=== PATIENT | male | born 2000 | race Caucasian/White ===

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

== ENCOUNTER 2019-04-20 11:51 | Outpatient (CLI) | payer BC, SELFPAY ==
[2019-04-20 12:47] LABS: HCT 42.7 % (40.0-50.0); HGB 13.9 g/dL (13.5-17.5); Mean Corp. HGB Concentration 32.6 g/dL (32.0-36.0); Mean Corpuscular Hemoglobin 26.7 pg (27.0-33.0); Mean Corpuscular Volume 82.1 fL (80-95); Mean Platelet Volume 9.4 fL (8.0-11.0); Platelet Count 260 x1000/uL (130-400); RBC Distribution Width 13.5 % (11.8-14.1); White Blood Cell Count 7.64 k/cumm (4.4-10.8)
[2019-04-20 13:49] LABS: ALT 66 U/L (16-63); AST 31 U/L (15-37); Albumin 3.8 g/dL (3.4-5.0); Alkaline Phosphatase 85 U/L (46-116); Anion Gap 13.6 mmol/L (3-11); BUN 17 mg/dL (7-18); Bilirubin, Total 0.6 mg/dL (0.2-1.0); CO2 25.4 mmol/L (21.0-32.0); CREATININE 1.02 mg/dL (0.70-1.30); Calcium 8.7 mg/dL (8.5-10.1); Chloride 103 mmol/L (98-107); Glucose 128 mg/dL (74-106); Potassium 4.1 mmol/L (3.5-5.1); Sodium 142 mmol/L (136-145); TSH (W/Ref FT4) 1.91 uIU/mL (0.36-3.74); Total Protein 7.5 g/dL (6.4-8.2)
== END 2019-04-20 12:11 ==
PROVIDERS: PCP Family Medicine; Visit Provider Family Medicine
DX: F32.9 Major depressive disorder, single episode, unspecified (principal)
CPT/HCPCS: 36415; 80053; 85027; 84443

== ENCOUNTER 2020-09-28 15:10 | Emergency (ER) | payer OTHER, SELFPAY ==
[2020-09-28 15:14] VITALS: BP 127/52; PULSE 58; RESP 15; TEMP 36.4; O2SAT 98
--- NOTE | 2020-09-28 15:15 | DI.RAD_ITS ---
Exam(s) XR SHOULDER RT COMPLETE 2+V EXAM: XR SHOULDER RT COMPLETE 2+V CLINICAL HISTORY: s/p dislocation self reduction,r/o fx/dislocation TECHNIQUE: COMPARISON: No exams were available for comparison FINDINGS: Four views were obtained. There is no evidence of fracture or dislocation at this time. IMPRESSION: RADIATION DOSE DELIVERED: Total DLP
--- NOTE | 2020-09-28 15:24 | W.ED.GENAD ---
Discharge Plan Disposition Patient Disposition: HOME Condition: Stable Discharge Details Clinical Impression: Pain in right shoulder, History of dislocation of shoulder Primary Care Provider: Benitez Nation ED Provider: Terra Sutton Home Meds and New Rx's Prescriptions: Continued albuterol sulfate [Ventolin HFA] 90 mcg/actuation HFA aerosol inhaler 2 puff IH Q4H PRN (Reason: shortness of breath or wheezing) Qty: 8.5 RF: 2 escitalopram oxalate 10 mg tablet 10 mg PO DAILY Qty: 30 RF: 11 Discharge Instructions Instructions: Shoulder Dislocation (ED) Additional Instructions: Wear the sling over the next few days and then as much as possible for the next week. Rest, ice, and elevate the affected area as much as possible. Alternate tylenol and motrin as needed and directed for pain. If you are continuing to have pain or any other concerns, follow-up with orthopedics for further evaluation. Return immediately to the emergency department if you develop any worsening or new concerning symptoms. Stand Alone Forms: Work Release Referrals: Ferddy Miles MD [ [facility] STAFF PHYSICIAN] - Discharge Data Discharge Date/Time-TO BE ENTERED AT DEPARTURE: 09/28/20 16:45 Discharge Physician: Terra Sutton Medical Decision Making 19-year-old male with a previous history of right shoulder dislocation presents for right shoulder pain after he reports he dislocated his shoulder and self reduced just prior to arrival. Right shoulder appears normal to inspection with full range of motion with minimal pain. He is neurovascularly intact. There is no deformity. Patient was placed in a sling and given ibuprofen. He was referred for an x-ray which was unremarkable. He was advised on the importance of RICE, alternating Tylenol and Motrin. He was given orthopedic follow-up information if needed. Usual and customary return precautions given prior to discharge. Medical Records Medical records reviewed: Yes I reviewed the patient's medical records. Imaging Data Radiologic Study: Radiologist's impression: XR Right Shoulder Exam date and time: 09/28/2020 3:32 PM Age: 19 years old Clinical indication: Injury or trauma; Fall; Dislocation; Severity not specified; Shoulder; Right TECHNIQUE: Imaging protocol: XR Right shoulder. Views: 2 or more views. COMPARISON: CR RIGHT SHOULDER COMPLETE 12/01/2016 4:48 PM FINDINGS: Bones/joints: Normal. Soft tissues: Normal. IMPRESSION: No acute findings. HPI General Mode of arrival: ambulatory. Date/Time Provider Initiated Documentation: 09/28/20 15:20. Limitations to Documentation: no limitations. Information obtained by: patient. HPI Narrative: Patient is a 19-year-old male with a previous history of shoulder dislocation who presents to the ED with a report of shoulder dislocation that he has since reduced. Patient states while at work 30 minutes ago he was exiting a trailer when he lost his balance and attempted to hold himself upright by pulling on the trailer door and states his right shoulder dislocated. He states he bent forward hanging his arm downward and was able to reduce the shoulder on his own. He denies any significant shoulder pain. He states he last dislocated his shoulder 3 years ago. He denies any history of shoulder surgery. He has not taken any medication for pain. Related Data Home Medications Medication Instructions Recorded Confirmed albuterol sulfate 90 mcg/actuation 2 puff IH Q4H PRN #8.5 gm 07/28/19 09/28/20 aerosol inhaler escitalopram oxalate 10 mg tablet 10 mg PO DAILY #30 tab 05/30/20 09/28/20 Previous Rx's Medication Instructions Recorded albuterol sulfate 90 mcg/actuation 2 puff IH Q4H PRN #8.5 gm 07/28/19 aerosol inhaler escitalopram oxalate 10 mg tablet 10 mg PO DAILY #30 tab 05/30/20 Allergies Allergy/AdvReac Type Severity Reaction Status Date / Time environmental Allergy Uncoded 09/28/20 15:19 General Stated Complaint: Orthopedic SILVINA: 3 Review of Systems All systems reviewed & are unremarkable except as noted in HPI and below [facility] Medical History (Updated 09/28/20 @ 16:39 by Terra Sutton DO) Allergic rhinitis Asthma Environmental allergies Fracture of left elbow Surgical History (Updated 02/25/18 @ 14:36 by [employer] [place]) Adenoidectomy (02/04/13) Fracture, Open Treatment Nasal septoplasty Family History (Updated 03/15/19 @ 09:30 by Jus Sethi) Mother No problems noted. Father Alcohol abuse a recovered etoh Paternal Grandfather Diabetes Hyperlipidemia Sister No problems noted. Maternal Grandfather No problems noted. Maternal Grandmother No problems noted. Paternal Grandmother Alcohol abuse Other Asthma Stroke Social History (Updated 03/15/19 @ 09:21 by Jus Sethi) Smoking/Tobacco Use Status: Never Smoking risk assessment performed?: Yes Alcohol Intake: never Drug use: Never Counseling given: No Counseling provided: none Caregiver/Support person: No Household members: family Housing: house Communication Needs: None Do you need help understanding health information?: Rarely Pets and animals: Yes Pets and animals: dog(s) Sexually active: No Do you think of yourself as: straight/heterosexual Current gender identity: male What is your relationship status?: never How often do you talk on the phone with friends or family?: three or more times per week How often do you get together with friends or relatives?: three or more times per week How often do you attend religion or orthodoxy services?: decline to answer Do you belong to any clubs or organized social groups?: no Panel score (0-1 are the most socially isolated patients): 1 Duration: < 15 minutes/day Frequency: 1-2 times per week Kristel/Baptist: None Special kristel needs: No Seatbelt use: always Helmet use: Yes Helmet use: always Drive intox or ride w/intox 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 Do you feel safe at home: Yes Do you feel safe in your relationship?: Yes Exam Const General: cooperative, healthy appearing and no acute distress HENRI Head: normal to inspection Mouth: oral mucosae normal Eyes General: appearance normal, both eyes and all related structures Neck Neck: normal visual inspection Resp Effort & Inspection: normal respiratory effort and able to speak in complete sentences Cardio Rate: regular rate Skin General skin exam: no rashes or lesions noted Neuro General: patient alert, patient awake and patient oriented x3 Motor: muscle tone normal throughout Extrem General: normal to inspection, full ROM and capillary refill normal Other: Right anterior shoulder appears normal to inspection. He is able to normally flex, extend, internally externally rotate the right shoulder. There does not appear to be any deformity, ecchymosis or open wounds. He has very minimal pain with range of motion both active and passive. His right radial and ulnar pulses are intact. No tenderness palpation to right elbow or wrist. Psych Appearance: grossly normal Affect: normal affect Course Vital Signs Vital signs: Vital Signs Temperature 97.5 F L 09/28/20 15:14 Pulse 58 L 09/28/20 15:14 Respiratory Rate 15 09/28/20 15:14 Blood Pressure 127/52 L 09/28/20 15:14 Pulse Oximetry 98 09/28/20 15:14 Temperature 97.5 F L 09/28/20 15:14 Temperature Source Temporal Artery Scan 09/28/20 15:14 Pulse 58 L 09/28/20 15:14 Respiratory Rate 15 09/28/20 15:14 Respiratory Effort Non-Labored 09/28/20 15:17 Blood Pressure 127/52 L 09/28/20 15:14 Blood Pressure Position Sitting 09/28/20 15:14 Pulse Oximetry 98 09/28/20 15:14 Oxygen Delivery Method Room Air 09/28/20 15:14 Oxygen Flow Rate 0 09/28/20 15:14 Pain Level 2 09/28/20 15:14
[2020-09-28] MEDS: Ibuprofen 600 MG TAB PO (15:35)
--- NOTE | 2020-09-28 16:20 | DI.VRAD_ITS ---
PROCEDURE INFORMATION: Exam: XR Right Shoulder Exam date and time: 09/28/2020 3:32 PM Age: 19 years old Clinical indication: Injury or trauma; Fall; Dislocation; Severity not specified; Shoulder; Right TECHNIQUE: Imaging protocol: XR Right shoulder. Views: 2 or more views. COMPARISON: CR RIGHT SHOULDER COMPLETE 12/01/2016 4:48 PM FINDINGS: Bones/joints: Normal. Soft tissues: Normal. IMPRESSION: No acute findings. Dictated and Authenticated by: Curly Mohr MD. Ordering:ROS Ellison MD
== END 2020-09-28 16:45 | disposition home or self-care (01) ==
PROVIDERS: Emergency Provider Physician Assistant; PCP Family Medicine
DX: S49.81XA Other specified injuries of right shoulder and upper arm, initial encounter (principal); X50.0XXA Overexertion from strenuous movement or load, initial encounter; Y99.0 Civilian activity done for income or pay
CPT/HCPCS: 99283; 73030

== ENCOUNTER 2021-06-29 19:09 | Emergency (ER) | payer OTHER, SELFPAY ==
[2021-06-29 19:13] VITALS: BP 153/78; PULSE 49; RESP 16; TEMP 36.3; O2SAT 100
--- NOTE | 2021-06-29 19:13 | ED.GENADUL_ITS ---
Discharge Plan Disposition Patient Disposition: HOME Condition: Good Discharge Details Clinical Impression: Finger laceration Primary Care Provider: Radha Sultana ED Provider: Anand Pathak Home Meds and New Rx's Prescriptions: Continued escitalopram oxalate 20 mg tablet 20 mg PO DAILY Qty: 90 3RF albuterol sulfate [Ventolin HFA] 90 mcg/actuation HFA aerosol inhaler 2 puff IH Q4H PRN (Reason: shortness of breath or wheezing) Qty: 8.5 2RF Discharge Instructions Instructions: Finger Laceration (ED) Additional Instructions: At this time the Dermabond will fall off on its own in a week. If you notice any redness, drainage, or warmth this could indicate infection, please return immediately for reassessment. The nail will take potentially a year to grow back. It way it will look atypical for quite some time. Please keep the area covered and protected to prevent any damage. If you notice any worsening of your symptoms, or any new symptoms such as vomiting, diarrhea, fever, chills, shortness of breath, chest pain, numbness, weakness, or fainting , please return immediately to the emergency department for reevaluation. Please follow up with your primary care provider as soon as possible for reassessment and reevaluation. As always, it was a pleasure participating in your medical care today. Referrals: Radha Sultana MD [Primary Care Provider] - Medical Decision Making This is a 20-year-old male with no significant past medical history who presents today for a laceration of his left index finger. Patient is right- hand dominant. He was slicing lettuce with a clean knife when it cut his finger across the dorsal aspect essentially shaving off the top layer of the distal nail and just superficially shaving off the skin. Aside her pain at the location of the shaved nail/skin, there is no other trauma. Tetanus was updated 2 years ago. Patient denies any numbness or tingling. No other complaints at this time. No other modifying factors. No weakness of the finger with movement Left index finger demonstrates a superficial shaving of the nail on the dorsal aspect taking off roughly the central component with about two thirds of the nail gone leaving behind a U-shaped remnant for the nail which is very atypical in my experience. There is mild bleeding from the tissue underneath. There is no other evidence of a laceration to the tip of the finger or anywhere else. The patient demonstrates good flexion and extension otherwise. Good sensation. The area was washed and cleaned with copious amounts of irrigation and normal saline/water. The area was then predicated with a ring tourniquet. Bleeding was stopped. The area was again assessed, no evidence of bony or tenderness laceration. Or involvement. Chemical cautery was applied to the tissue, and then Dermabond was placed over this. A protective finger splint was placed over this at the end. Patient stable for discharge. Discussed red flags which to return. I have extensively reviewed the treatment plan and discharge instructions with the patient. I have addressed all patient concerns at this time. The patient was made aware of what symptoms to monitor for that would warrant a return to the emergency department. Discussed the plan with the patient, they demonstrate verbal understanding and agreement with our assessment and plan at this time. The documentation in this chart was dictated using [employer] dictation software. Please excuse any dictation errors. HPI General Date/Time Provider Initiated Documentation: 06/29/21 19:12 . HPI Narrative: This is a 20-year-old male with no significant past medical history who presents today for a laceration of his left index finger. Patient is right- hand dominant. He was slicing lettuce with a clean knife when it cut his finger across the dorsal aspect essentially shaving off the top layer of the distal nail and just superficially shaving off the skin. Aside her pain at the location of the shaved nail/skin, there is no other trauma. Tetanus was updated 2 years ago. Patient denies any numbness or tingling. No other complaints at this time. No other modifying factors. No weakness of the finger with movement Related Data Home Medications Medication Instructions Recorded Confirmed albuterol sulfate 90 mcg/actuation 2 puff IH Q4H PRN #8.5 gm 07/28/19 06/29/21 aerosol inhaler (Ventolin HFA) escitalopram oxalate 20 mg tablet 20 mg PO DAILY #90 tab 11/01/20 06/29/21 Previous Rx's Medication Instructions Recorded albuterol sulfate 90 mcg/actuation 2 puff IH Q4H PRN #8.5 gm 07/28/19 aerosol inhaler (Ventolin HFA) escitalopram oxalate 20 mg tablet 20 mg PO DAILY #90 tab 11/01/20 Allergies Allergy/AdvReac Type Severity Reaction Status Date / Time environmental Allergy Uncoded 06/29/21 19:17 General SILVINA: 3 Review of Systems All systems reviewed & are unremarkable except as noted in HPI and below PFSH All Active Problems (Updated 06/29/21 @ 19:34 by Anand Pathak DO) Finger laceration (Acute) Sleep apnea (Acute) Impaired glucose metabolism (Acute) History of dislocation of shoulder (Acute) Depression (Chronic) Obesity (Chronic) Medical History Asthma Environmental allergies Fracture of left elbow age 1 Surgical History Adenoidectomy (02/04/13) Fracture, Open Treatment Nasal septoplasty Family History Mother No problems noted. Father Alcohol abuse a recovered etoh Paternal Grandfather Diabetes Hyperlipidemia Sister No problems noted. Maternal Grandfather No problems noted. Maternal Grandmother No problems noted. Paternal Grandmother Alcohol abuse Other Asthma Stroke Social History Smoking/Tobacco Use Status: Never Second Hand Exposure: Yes Smoking risk assessment performed?: Yes Alcohol Intake: current Alcohol Intake frequency: a few times a month Alcohol type: hard liquor Drug use: Never Counseling given: No Counseling provided: none Caregiver/Support person: No Household members: family Housing: house Communication Needs: None Do you need help understanding health information?: Rarely Pets and animals: Yes Pets and animals: dog(s) Sexually active: No Do you think of yourself as: straight/heterosexual Current gender identity: male What is your relationship status?: never How often do you talk on the phone with friends or family?: three or more times per week How often do you get together with friends or relatives?: three or more times per week How often do you attend hinduism or uatsdin services?: decline to answer Do you belong to any clubs or organized social groups?: no Panel score (0-1 are the most socially isolated patients): 1 Duration: < 15 minutes/day Frequency: 1-2 times per week Kristel/Spiritism: None Special kristel needs: No Seatbelt use: always Helmet use: Yes Helmet use: always Drive intox or ride w/intox mobile lounge driver: No Do you feel safe at home: Yes Do you feel safe in your relationship?: Yes Exam Narrative Exam Narrative: 1.Const: Well-nourished, Well-developed, appearing stated age 2.Eyes: PERRL, no conjunctival injection, and symmetrical lids. 3.ENT: Atraumatic external nose and ears. Moist MM. Neck: Symmetric, trachea midline, No thyromegaly. 4.CVS: +S1/S2, No murmurs or gallops. Peripheral pulses 2+ and equal in all extremities. Brisk capillary refill in all extremities. 5.RESP: Unlabored respiratory effort. Clear to auscultation bilaterally. No wheezes rales or rhonchi 6.GI: Soft, Nontender/Nondistended, No hepatosplenomegaly. No guarding or rebound. 7.MSK: Left index finger demonstrates a superficial shaving of the nail on the dorsal aspect taking off roughly the central component with about two thirds of the nail gone leaving behind a U-shaped remnant for the nail which is very atypical in my experience. There is mild bleeding from the tissue underneath. There is no other evidence of a laceration to the tip of the finger or anywhere else. The patient demonstrates good flexion and extension otherwise. Good sensation. 8.Skin: Warm, Dry. Please see musculoskeletal finger 9.Neuro: front desk receptionist II-XII grossly intact. Sensation grossly intact, no focal neurologic deficits. 10.Psych: (AAO) x3. Appropriate mood and affect
[2021-06-29] MEDS: Silver Nitrate Stick 1 EACH (19:20)
== END 2021-06-29 19:59 | disposition home or self-care (01) ==
PROVIDERS: Emergency Provider Student in an Organized Health Care Education/Training Program; PCP Family Medicine
DX: S61.211A Laceration without foreign body of left index finger without damage to nail, initial encounter (principal); W26.0XXA Contact with knife, initial encounter
CPT/HCPCS: 29130; 99283; 99282

== ENCOUNTER 2023-08-01 02:49 | Outpatient (CLI) | payer BC, SELFPAY ==
[2023-08-01 16:01] LABS: ALT 69 U/L (16-63); AST 27 U/L (15-37); Albumin 3.5 g/dL (3.4-5.0); Alkaline Phosphatase 88 U/L (46-116); Anion Gap 10.9 mmol/L (3-11); BUN 15 mg/dL (7-18); Bilirubin, Total 0.5 mg/dL (0.2-1.0); CO2 24.1 mmol/L (21.0-32.0); Calcium 8.9 mg/dL (8.5-10.1); Calculated LDL 93 mg/dL (<100); Chloride 106 mmol/L (98-107); Cholesterol 173 mg/dL (<200); Estimated GFR 107.78 (mL/min/1.73m2); Glucose 110 mg/dL (74-106); HDL Cholesterol 43 mg/dL (40-60); Potassium 4.2 mmol/L (3.5-5.1); Sodium 141 mmol/L (136-145); Total Protein 7.8 g/dL (6.4-8.2); Triglyceride 185 mg/dL (<150)
[2023-08-01 16:26] LABS: Hemoglobin A1C 5.6 % (<5.7)
[2023-08-02 10:49] LABS: HIV-1/2 Ag & Ab Screen Negative (Negative)
[2023-08-04 10:37] LABS: Hepatitis C Ab w Rflx HCV PCR Negative (Negative)
== END 2023-08-01 02:50 | disposition home or self-care (01) ==
PROVIDERS: PCP Family Medicine; Visit Provider Family Medicine
DX: R73.01 Impaired fasting glucose (principal); E66.01 Morbid (severe) obesity due to excess calories; Z68.43 Body mass index [BMI] 50.0-59.9, adult; Z13.6 Encounter for screening for cardiovascular disorders; Z00.00 Encounter for general adult medical examination without abnormal findings; Z11.4 Encounter for screening for human immunodeficiency virus [HIV]; E03.9 Hypothyroidism, unspecified
CPT/HCPCS: 36415; 80053; 80061; 86803; 87389; 83036; 84443

== ENCOUNTER 2023-10-12 20:35 | Emergency (ER) | payer SELFPAY ==
[2023-10-12 20:39] VITALS: BP 148/60; PULSE 70; RESP 16
--- NOTE | 2023-10-13 18:14 | W.ED.GENAD ---
Discharge Plan Disposition Patient Disposition: Home Condition: Stable Discharge Details Clinical Impression: Finger laceration Primary Care Provider: Radha Sultana ED Provider: Sandra Stuart Home Meds and New Rx's Prescriptions: Continued fluoxetine 20 mg capsule 20 mg PO DAILY naltrexone 50 mg tablet 50 mg PO DAILY metformin 500 mg tablet extended release 24 hr 1,000 mg PO QPM Qty: 60 0RF Discharge Instructions Instructions: Finger Laceration (ED) Additional Instructions: Keep wound clean and dry Allow to air dry after 48 hours when you are at home Do not submerge your finger in water until the sutures are removed Suture removal in 10 to 12 days Return spreading redness, fever, worsening pain Referrals: Radha Sultana MD [Primary Care Provider] - Discharge Data Discharge Date/Time-TO BE ENTERED AT DEPARTURE: 10/12/23 21:25 HPI General Date/Time Provider Initiated Documentation: 10/12/23 20:43. HPI Narrative: 22-year-old male presents with finger laceration on third digit of left hand just prior to arrival while at work. He was trimming a steak. He denies any additional complaints. Tetanus is up-to-date. Related Data Home Medications Medication Instructions Recorded Confirmed fluoxetine 20 mg capsule 20 mg PO DAILY 07/30/23 10/12/23 metformin 500 mg tablet,extended 1,000 mg (2 x 500 mg) PO QPM #60 07/30/23 10/12/23 release 24 hr tabs naltrexone 50 mg tablet 50 mg PO DAILY 07/30/23 10/12/23 Previous Rx's Medication Instructions Recorded metformin 500 mg tablet,extended 1,000 mg (2 x 500 mg) PO QPM #60 07/30/23 release 24 hr tabs Allergies Allergy/AdvReac Type Severity Reaction Status Date / Time environmental Allergy Nasal Uncoded 10/12/23 20:43 congestion General Stated Complaint: Laceration SILVINA: 4 Course Vital Signs Vital signs: Vital Signs Pulse 70 10/12/23 20:39 Respiratory Rate 16 10/12/23 20:39 Blood Pressure 148/60 H 10/12/23 20:39 Pulse 70 10/12/23 20:39 Respiratory Rate 16 10/12/23 20:39 Respiratory Effort Normal, Non-Labored 10/12/23 20:46 Blood Pressure 148/60 H 10/12/23 20:39 Blood Pressure Position Sitting 10/12/23 20:39 Oxygen Delivery Method Room Air 10/12/23 20:39 Oxygen Flow Rate 0 10/12/23 20:39 Pain Level 1 10/12/23 20:39 Procedures Laceration Laceration 1: Site: hand Side (If applicable): left Size (cm): 1 Description: linear Depth: simple, single layer Local Anesthetic: Lidocaine 1% Amount of anesthesia used (mL): 3 Pre-repair: wound explored, irrigated extensively and deep structures intact Skin layer closed with: nylon Size (cm): 5-0 Number of sutures: 3 Medical Decision Making 22-year-old male presenting with laceration to left third digit. Tolerated suture placement without incident, 3 sutures placed, 1 horizontal mattress and 2 simple, will need to remove in 10 days Dressing applied Tetanus up-to-date Laceration mid phalanx, neurovascularly intact, extension and flexion of finger intact Return precautions reviewed and patient expressed understanding Quality:SDOH Health Related Social Needs: No Data to Display PFSH All Active Problems (Updated 10/12/23 @ 21:19 by LATESHA Mcdonnell) Finger laceration (Acute) Morbid obesity with BMI of 50.0-59.9, adult (Acute) Impaired glucose metabolism (Acute) Depression (Chronic) h/o negative sleep study; depression felt to cause his fatigue. Prior use of celexa; now on fluoxetine. Medical History (Updated 10/12/23 @ 21:19 by LATESHA Mcdonnell) Allergic rhinitis (11/29/13) History of dislocation of shoulder Asthma Fracture of left elbow age 1 Environmental allergies Surgical History (Updated 04/19/22 @ 11:45 by Radha Sultana MD) S/P nasal septoplasty S/P adenoidectomy Status post labral repair of shoulder (~01/2022) Family History Mother No problems noted. Father Alcohol abuse a recovered etoh Paternal Grandfather Diabetes Hyperlipidemia Sister No problems noted. Maternal Grandfather No problems noted. Maternal Grandmother No problems noted. Paternal Grandmother Alcohol abuse Other Asthma Stroke Social History (Updated 07/30/23 @ 13:57 by Radha Sultana MD) Smoking/Tobacco Use Status: Never Second Hand Exposure: Yes Smoking risk assessment performed?: Yes Alcohol Intake: current Alcohol Intake frequency: a few times a month Alcohol type: hard liquor Drug use: Never Counseling given: No Counseling provided: none Caregiver/Support person: No Household members: family Housing: house Communication Needs: None Do you need help understanding health information?: Rarely current occupation: works as a [employer] at [email or web address] Pets and animals: Yes Pets and animals: dog(s) Sexually active: No Do you think of yourself as: straight/heterosexual Current gender identity: male What is your relationship status?: never How often do you talk on the phone with friends or family?: three or more times per week How often do you get together with friends or relatives?: three or more times per week How often do you attend restoration or congregational services?: decline to answer Do you belong to any clubs or organized social groups?: no Panel score (0-1 are the most socially isolated patients): 1 Duration: < 15 minutes/day Frequency: 1-2 times per week Kristel/Alevism: None Special kristel needs: No Seatbelt use: always Helmet use: Yes Helmet use: always Drive intox or ride w/intox hazardous materials tanker driver: No Do you feel safe at home: Yes Do you feel safe in your relationship?: Yes
== END 2023-10-12 21:25 | disposition home or self-care (01) ==
PROVIDERS: Emergency Provider Physician Assistant; PCP Family Medicine
DX: S61.213A Laceration without foreign body of left middle finger without damage to nail, initial encounter (principal); W26.0XXA Contact with knife, initial encounter
CPT/HCPCS: 12001

== ENCOUNTER 2023-10-23 13:33 | Emergency (ER) | payer BC, SELFPAY ==
[2023-10-23 13:41] VITALS: BP 154/66; PULSE 64; RESP 20; O2SAT 99
--- NOTE | 2023-10-23 13:44 | ED.GENADUL_ITS ---
Discharge Plan Disposition Patient Disposition: Home Condition: Stable Discharge Details Clinical Impression: Visit for suture removal Primary Care Provider: Radha Sultana ED Provider: Carri Mcclure Home Meds and New Rx's Prescriptions: Continued fluoxetine 20 mg capsule 20 mg PO DAILY naltrexone 50 mg tablet 50 mg PO DAILY metformin 500 mg tablet extended release 24 hr 1,000 mg PO QPM Qty: 60 0RF Discharge Instructions Instructions: Stitches Removal Additional Instructions: Follow up with primary care provider in 3-5 days if needed for wound recheck. Return to ED sooner if any worsening or concerns. Return to the ER for any worsening signs of infection increased redness red streaking or drainage. Referrals: Radha Sultana MD [Primary Care Provider] - 1 week (If needed) Discharge Data Discharge Date/Time-TO BE ENTERED AT DEPARTURE: 10/23/23 14:14 HPI General Mode of arrival: ambulatory . Date/Time Provider Initiated Documentation: 10/23/23 13:43 . Limitations to Documentation: no limitations . Information obtained by: patient and RN notes reviewed . HPI Narrative: 22-year-old male presents to the ER after having 3 sutures placed to his left middle finger 10 days ago. Does have some surrounding redness, denies any pain red streaks, he does have full range of motion noted to his digit. Wound is well-approximated at this time. No other associated symptoms or complaints. Related Data Home Medications Medication Instructions Recorded Confirmed fluoxetine 20 mg capsule 20 mg PO DAILY 07/30/23 10/23/23 metformin 500 mg tablet,extended 1,000 mg (2 x 500 mg) PO QPM #60 07/30/23 10/23/23 release 24 hr tabs naltrexone 50 mg tablet 50 mg PO DAILY 07/30/23 10/23/23 Previous Rx's Medication Instructions Recorded metformin 500 mg tablet,extended 1,000 mg (2 x 500 mg) PO QPM #60 07/30/23 release 24 hr tabs Allergies Allergy/AdvReac Type Severity Reaction Status Date / Time environmental Allergy Nasal Uncoded 10/23/23 13:43 congestion General Stated Complaint: SutureRem SILVINA: 4 Review of Systems Integumentary/Breasts Skin/Breast: Reports as per HPI, Reports erythema and Reports wounds Exam Extrem Left upper extremity: hand Details: normal capillary refill, neuromotor exam normal, neurosensory exam normal and ecchymosis Location: of the 3rd digit Location: at the proximal phalanx (Surrounding Sutured wound) and on the dorsal aspect Course Vital Signs Vital signs: Vital Signs Pulse 64 10/23/23 13:41 Respiratory Rate 20 10/23/23 13:41 Blood Pressure 154/66 H 10/23/23 13:41 Pulse Oximetry 99 10/23/23 13:41 Pulse 64 10/23/23 13:41 Respiratory Rate 20 10/23/23 13:41 Blood Pressure 154/66 H 10/23/23 13:41 Blood Pressure Position Sitting 10/23/23 13:41 Pulse Oximetry 99 10/23/23 13:41 Oxygen Delivery Method Room Air 10/23/23 13:41 Oxygen Flow Rate 0 10/23/23 13:41 Medical Decision Making 22-year-old male presents to the ER with suture removal to his left middle finger. Patient sutures placed 10 days ago after cutting himself with a knife while at work. He does have some surrounding redness, he denies any pain no red streaks noted he does have full range of motion noted to his digit. Distal CMS intact. Discussed home care, will remove sutures at this time placed a Band-Aid, I did discuss strict return instructions to return for any worsening signs of infection red streaks or drainage. He verbalized understanding. 3 sutures removed by [employer] staff. Patient discharged with home care and strict return instructions, Verbalized understanding. This text was generated using [employer] dictation system, please disregard any oddities of phrase or misspellings. Quality:SDOH Health Related Social Needs: No Data to Display PFSH All Active Problems (Updated 10/23/23 @ 14:01 by Carri Mcclure NP) Visit for suture removal (Acute) Finger laceration (Acute) Morbid obesity with BMI of 50.0-59.9, adult (Acute) Impaired glucose metabolism (Acute) Depression (Chronic) h/o negative sleep study; depression felt to cause his fatigue. Prior use of celexa; now on fluoxetine. Medical History (Updated 10/23/23 @ 14:01 by Carri Mcclure NP) Allergic rhinitis (11/29/13) History of dislocation of shoulder Asthma Fracture of left elbow age 1 Environmental allergies Surgical History (Updated 04/19/22 @ 11:45 by Radha Sultana MD) S/P nasal septoplasty S/P adenoidectomy Status post labral repair of shoulder (~01/2022) Family History Mother No problems noted. Father Alcohol abuse a recovered etoh Paternal Grandfather Diabetes Hyperlipidemia Sister No problems noted. Maternal Grandfather No problems noted. Maternal Grandmother No problems noted. 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[employer] Pets and animals: Yes Pets and animals: dog(s) Sexually active: No Do you think of yourself as: straight/heterosexual Current gender identity: male What is your relationship status?: never How often do you talk on the phone with friends or family?: three or more times per week How often do you get together with friends or relatives?: three or more times per week How often do you attend evangelical or tenriism services?: decline to answer Do you belong to any clubs or organized social groups?: no Panel score (0-1 are the most socially isolated patients): 1 Duration: < 15 minutes/day Frequency: 1-2 times per week Kristel/Christian: None Special kristel needs: No Seatbelt use: always Helmet use: Yes Helmet use: always Drive intox or ride w/intox pile driver engineer: No Do you feel safe at home: Yes Do you feel safe in your relationship?: Yes
== END 2023-10-23 14:14 | disposition home or self-care (01) ==
PROVIDERS: Emergency Provider Registered Nurse Emergency; PCP Family Medicine
DX: S61.213D Laceration without foreign body of left middle finger without damage to nail, subsequent encounter (principal); X58.XXXD Exposure to other specified factors, subsequent encounter

== ENCOUNTER 2025-01-25 14:51 | Outpatient (REF) | payer BC, SELFPAY ==
[2025-01-25 14:46] LABS: HCT 42.6 % (40.0-50.0); HGB 13.5 g/dL (13.5-17.5); MCH 25.8 pg (27.0-33.0); MCHC 31.7 % (32.0-36.0); MCV 81 fL (80-95); MPV 9.6 fL (8.0-11.0); Platelet Count 283 10^3/uL (130-400); RBC 5.24 10^6/uL (4.36-5.78); RDW 13.3 % (11.8-14.1); RDW-SD 39.1 fL; WBC 7.26 10^3/uL (4.4-10.8)
[2025-01-25 15:46] LABS: ALT 54 U/L (16-63); AST 26 U/L (15-37); Albumin 3.4 g/dL (3.4-5.0); Alkaline Phosphatase 75 U/L (46-116); Anion Gap 9.3 mmol/L (3-11); BUN 13 mg/dL (7-18); Bilirubin, Total 0.6 mg/dL (0.2-1.0); CO2 26.7 mmol/L (21.0-32.0); Calcium 8.7 mg/dL (8.5-10.1); Calculated LDL 104 mg/dL (<100); Chloride 106 mmol/L (98-107); Cholesterol 157 mg/dL (<200); Estimated GFR 125.17 (mL/min/1.73m2); Glucose 96 mg/dL (74-106); HDL Cholesterol 37 mg/dL (>or=40); Potassium 4.2 mmol/L (3.5-5.1); Sodium 142 mmol/L (136-145); TSH 2.05 uIU/mL (0.36-3.74); Total Protein 7.0 g/dL (6.4-8.2); Triglyceride 81 mg/dL (<150)
[2025-01-25 23:02] LABS: T3,Free 4.5 pg/mL (2.8-5.3)
[2025-01-26 14:51] LABS: Hemoglobin A1C 5.6 % (<5.7)
== END 2025-01-25 14:52 | disposition home or self-care (01) ==
LOC: NCHCN 14:51
PROVIDERS: PCP Family Medicine; Visit Provider Physician Assistant
DX: E66.01 Morbid (severe) obesity due to excess calories (principal); Z80.8 Family history of malignant neoplasm of other organs or systems
CPT/HCPCS: 80053; 80061; 85027; 83036; 84439; 84443; 84481